=== PATIENT | female | born 2000 | race African-American/Black ===

== ENCOUNTER 2022-04-21 23:41 | Emergency (ER) | payer OTHER ==
[2022-04-21 23:49] VITALS: BP 117/68; PULSE 85; RESP 18; TEMP 98.5; BMI 21.6
== END 2022-04-22 00:10 | disposition home or self-care (01) ==
LOC: FER 23:41
DX: J45.909 Unspecified asthma, uncomplicated (principal)
CPT/HCPCS: 99283-25